=== PATIENT | female | born 1990 | race Caucasian/White ===

== ENCOUNTER → 2016-12-18 | Outpatient (CLI) | payer OTHER ==
[2016-12-18 11:14] LABS: HEMOGLOBIN 11.4 g/dL (11.7-16.4)
== END | disposition home or self-care (01) ==
LOC: LAB 10:10
PROVIDERS: ATTEND Obstetrics & Gynecology
DX: Z34.82 Encounter for supervision of other normal pregnancy, second trimester (principal)
CPT/HCPCS: 36415; 82950; 85025

== ENCOUNTER 2017-02-27 04:14 | Outpatient (CLI) | payer OTHER ==
[~2017-02-27] VITALS: Ht 162.6 cm; Wt 96.8 kg
[2017-02-27 05:48] VITALS: BP 124/80
== END 2017-02-27 05:15 | disposition home or self-care (01) ==
LOC: LDOP 04:14
PROVIDERS: ATTEND Obstetrics & Gynecology
DX: O26.893 Other specified pregnancy related conditions, third trimester (principal); R03.0 Elevated blood-pressure reading, without diagnosis of hypertension; Z3A.36 36 weeks gestation of pregnancy
CPT/HCPCS: 59025; 81003; 99211; G0463

== ENCOUNTER 2017-03-15 05:23 | Inpatient (IN) | payer OTHER ==
[~2017-03-15] VITALS: Ht 162.6 cm; Wt 99.0 kg
[2017-03-15] MEDS ORDERED: OXYTOCIN 30U/ 0.9% NaCL 500ML 500 ML IV SCH (05:27)
[2017-03-15] MEDS ORDERED: LACTATED RINGERS 1,000 ML IV SCH ×2 (05:27→05:30)
[2017-03-15] MEDS ORDERED: SODIUM CITRATE/CITRIC ACID 30 ML UDC PO ONE (05:30)
[2017-03-15] MEDS ORDERED: LACTATED RINGERS 1,000 ML IVBOLUS ONE (05:30)
[2017-03-15] MEDS ORDERED: METOCLOPRAMIDE 5 MG/ML, 2ML IV ONE (05:30)
[2017-03-15] MEDS ORDERED: NEWBORN KIT ONE (05:32)
[2017-03-15 05:35] VITALS: BP 119/77
[2017-03-15] MEDS ORDERED: PREN-3 PO (05:41)
[2017-03-15] MEDS ORDERED: OXYTOCIN 30U/ 0.9% NaCL 500ML 500 ML ONE (06:12)
[2017-03-15] MEDS ORDERED: METOCLOPRAMIDE 5 MG/ML, 2ML ONE (06:12)
[2017-03-15] MEDS ORDERED: SODIUM CITRATE/CITRIC ACID 30 ML UDC ONE (06:12)
[2017-03-15] MEDS: OXYTOCIN 30U/ 0.9% NaCL 500ML 500 ML IV SCH ×2 (07:27→17:27)
[2017-03-15] MEDS ORDERED: PHENYLEPHRINE 10 MG/ML ONE (07:27)
[2017-03-15] MEDS ORDERED: EPHEDRINE 50 MG/ML, 1ML ONE (07:27)
[2017-03-15] MEDS: LACTATED RINGERS 1,000 ML IV SCH ×5 (07:27→19:06)
[2017-03-15] MEDS ORDERED: morphine SULFATE/PF 0.5 MG/ML, 10ML ONE (07:27)
[2017-03-15] MEDS ORDERED: CEFAZOLIN 1,000 MG ONE (07:27)
[2017-03-15] MEDS ORDERED: MISOPROSTOL 200 MCG TABLET PR PRN (07:30)
[2017-03-15] MEDS ORDERED: morphine SULFATE 10 MG/ML, 1ML IVPush PRN ×2 (07:30)
[2017-03-15] MEDS ORDERED: CALCIUM CARBONATE 500 MG TAB.CHEW PO PRN (07:30)
[2017-03-15] MEDS ORDERED: OXYcodone IR 5MG TABLET PO PRN (07:30)
[2017-03-15] MEDS ORDERED: ONDANSETRON 2MG/ML, 2ML IV PRN (07:30)
[2017-03-15] MEDS ORDERED: MEPERIDINE/PF 50 MG/ML IM PRN (07:30)
[2017-03-15] MEDS ORDERED: MEPERIDINE/PF 25MG/0.5ML IM PRN (07:30)
[2017-03-15] MEDS ORDERED: SIMETHICONE 80 MG CHEW TAB PO PRN (07:30)
[2017-03-15] MEDS ORDERED: DOCUSATE 100 MG CAPSULE PO SCH (09:00)
[2017-03-15] MEDS: PRENATAL VIT/IRON/FA 1 EACH TABLET PO SCH (09:00)
[2017-03-15] MEDS ORDERED: ONDANSETRON 2MG/ML, 2ML ONE (10:57)
[2017-03-15 11:15] VITALS: BP 123/75
[2017-03-15] MEDS ORDERED: ONDANSETRON 2MG/ML, 2ML IVPush ONE (12:00)
[2017-03-15] MEDS: KETOROLAC 30 MG/1 ML IV PRN ×2 (12:50→19:06)
[2017-03-15] MEDS ORDERED: NALOXONE 0.4 MG/ML, 1ML IV PRN (13:00)
[2017-03-15] MEDS ORDERED: OXYcodone/APAP 5/325MG TABLET PO PRN (13:00)
[2017-03-15] MEDS ORDERED: DIPHENHYDRAMINE 50 MG/ML, 1ML IV PRN (13:00)
[2017-03-15] MEDS ORDERED: HYDROmorphone 1 MG/ML, 1ML IVPush PRN (13:00)
[2017-03-15] MEDS ORDERED: ONDANSETRON 2MG/ML, 2ML IVPush PRN (13:00)
[2017-03-15] MEDS ORDERED: KETOROLAC 30 MG/1 ML IVPush SCH (13:00)
[2017-03-15 16:00] VITALS: BP 119/78
[2017-03-15] MEDS: OXYcodone/APAP 5/325MG TABLET PO PRN ×2 (17:24→21:21)
[2017-03-15 20:20] VITALS: BP 115/73
[2017-03-15] MEDS: DOCUSATE 100 MG CAPSULE PO SCH (21:21)
[2017-03-16] VITALS: BP 115/62
[2017-03-16] MEDS: KETOROLAC 30 MG/1 ML IV PRN ×2 (01:24→07:11)
[2017-03-16] MEDS: OXYcodone/APAP 5/325MG TABLET PO PRN ×4 (01:27→13:38)
[2017-03-16] MEDS: OXYTOCIN 30U/ 0.9% NaCL 500ML 500 ML IV SCH (03:27)
[2017-03-16] MEDS: LACTATED RINGERS 1,000 ML IV SCH (03:27)
[2017-03-16 04:00] VITALS: BP 116/68
[2017-03-16 07:10] VITALS: BP 117/77
[2017-03-16] MEDS: PRENATAL VIT/IRON/FA 1 EACH TABLET PO SCH (09:55)
[2017-03-16] MEDS: DOCUSATE 100 MG CAPSULE PO SCH ×2 (09:56→19:29)
[2017-03-16] MEDS: IBUPROFEN 600 MG TABLET PO PRN ×2 (13:37→19:29)
[2017-03-16] MEDS: OXYcodone IR 5MG TABLET PO PRN ×2 (17:32→21:50)
[2017-03-16 19:10] VITALS: BP 128/87
[2017-03-16] MEDS ORDERED: OXYC-302 PO (23:39)
[2017-03-16] MEDS ORDERED: DOCU-30 PO (23:40)
[2017-03-16] MEDS ORDERED: IBUP800T PO (23:41)
[2017-03-16] MEDS ORDERED: FERR325T20 PO (23:41)
[2017-03-17] MEDS: OXYcodone IR 5MG TABLET PO PRN ×4 (01:44→14:14)
[2017-03-17] MEDS: IBUPROFEN 600 MG TABLET PO PRN ×3 (01:44→14:14)
[2017-03-17 07:21] VITALS: BP 108/71
[2017-03-17] MEDS: DOCUSATE 100 MG CAPSULE PO SCH (07:39)
[2017-03-17] MEDS: PRENATAL VIT/IRON/FA 1 EACH TABLET PO SCH (07:39)
[2017-03-17] MEDS ORDERED: FERROUS GLUCONATE 324 MG TABLET PO SCH (08:00)
== END 2017-03-17 15:26 | disposition home or self-care (01) | DRG 766 ==
LOC: LDIP 05:23 → 2NW 11:11
PROVIDERS: ADMIT Obstetrics & Gynecology; ATTEND Obstetrics & Gynecology
PROC: 10D00Z1 Extraction of Products of Conception, Low, Open Approach (ICD-10-PCS; principal; 2017-03-15)
DX: O34.211 Maternal care for low transverse scar from previous cesarean delivery (principal); O32.8XX0 Maternal care for other malpresentation of fetus, not applicable or unspecified; O34.593 Maternal care for other abnormalities of gravid uterus, third trimester; O69.1XX0 Labor and delivery complicated by cord around neck, with compression, not applicable or unspecified; O99.02 Anemia complicating childbirth; D64.9 Anemia, unspecified; R60.9 Edema, unspecified; Q51.2 Other doubling of uterus; Z37.0 Single live birth; Z3A.39 39 weeks gestation of pregnancy
CPT/HCPCS: 36415; 85025; 86850; 86900; J0690; J1885; J2274; J2405; J2370; J2590; J2765; J7120

== ENCOUNTER 2017-03-23 21:30 | Emergency (ER) | payer OTHER ==
[~2017-03-23] VITALS: Ht 162.6 cm; Wt 95.0 kg
[~2017-03-23 21:30] MED LIST: DOCU-30 PO; FERR325T20 PO; IBUP800T PO; OXYC-302 PO; PREN-3 PO
[2017-03-23] MEDS ORDERED: MORPHINE SULFATE 4 MG/ML, 1ML ONE (21:47)
[2017-03-23] MEDS ORDERED: ONDANSETRON 2MG/ML, 2ML ONE (21:47)
[2017-03-23] MEDS ORDERED: MORPHINE SULFATE 4 MG/ML, 1ML IVPush PRN (22:00)
[2017-03-23] MEDS ORDERED: SODIUM CHLORIDE 0.9% 1,000ML IVBOLUS ONE (22:00)
[2017-03-24] MEDS ORDERED: METHYLERGONOVINE 0.2MG TABLET PO ONE (00:30)
[2017-03-24 01:03] VITALS: BP 124/72
== END 2017-03-24 01:10 | disposition home or self-care (01) ==
LOC: ED 22:59
DX: O72.1 Other immediate postpartum hemorrhage (principal)
CPT/HCPCS: 36415; 76830; 85025; 96374; 99285; J7030